=== PATIENT | female | born 1985 | race Caucasian/White ===

== ENCOUNTER 2023-10-29 01:23 | Emergency (ER) | payer OTHER ==
[~2023-10-29] VITALS: Ht 177.8 cm; Wt 78.2 kg
[~2023-10-29 01:23] MED LIST: AQUAOIN12; AZEL15GE2; CENT1TAB7 PO; TRIA1CR80
[2023-10-29] MEDS: PERCOCET 5MG/325MG TAB PO ONE (02:25)
[2023-10-29 05:30] VITALS: BP 122/67; TEMP 98.7; O2SAT 93
[2023-10-29] MEDS: OXYCODONE/APAP 5MG/325MG(HOME DOSE PACK) PO ONE (05:30)
== END 2023-10-29 05:46 | disposition home or self-care (01) ==
LOC: M ED 01:23 → EDBD 01:23 → M ED 05:46
DX: L76.22 Postprocedural hemorrhage of skin and subcutaneous tissue following other procedure (principal); I83.899 Varicose veins of unspecified lower extremity with other complications; J30.2 Other seasonal allergic rhinitis; F17.200 Nicotine dependence, unspecified, uncomplicated; Z79.899 Other long term (current) drug therapy

== ENCOUNTER → 2023-10-30 | Outpatient (CLI) | payer OTHER | LOC: M RAD 12:07 | PROVIDERS: ATTEND Nurse Practitioner Family | DX: I83.813 Varicose veins of bilateral lower extremities with pain (principal) ==

== ENCOUNTER 2023-12-17 08:32 | Day surgery (SDC) | payer OTHER ==
[~2023-12-17] VITALS: Ht 177.8 cm; Wt 80.3 kg
[2023-12-17 08:59] LABS: HEMOGLOBIN 15.2 g/dl (12.0-15.5)
[2023-12-17] MEDS ORDERED: ceFAZolin SOD 2 GM in IV 1 EA IV ONE (09:00)
[2023-12-17] MEDS ORDERED: propofoL 200 MG/20 ML VIAL As Ordered ONE (09:11)
[2023-12-17] MEDS ORDERED: LIDOCAINE 2% 100MG/5ML SDV (FOR ANES.) As Ordered ONE (09:12)
[2023-12-17] MEDS ORDERED: ONDANSETRON 4MG 2ML VIAL As Ordered ONE (09:12)
[2023-12-17] MEDS ORDERED: LR 1,000 ML IV SCH (09:40)
[2023-12-17] MEDS: NS 1,000 ML IV SCH (09:44)
[2023-12-17] MEDS ORDERED: MIDAZOLAM INJ 2MG/2ML VIAL As Ordered ONE (10:04)
[2023-12-17] MEDS: cefTRIAXone SOD 2 GM in D5W MINI-BAG PLUS 50 ML IV ONE (10:30)
[2023-12-17] MEDS ORDERED: ACETAMINOPHEN 1000MG 100ML IV BAG As Ordered ONE (10:37)
[2023-12-17] MEDS ORDERED: fentaNYL 100 MCG/2 ML INJECTION As Ordered ONE (10:40)
[2023-12-17] MEDS: LEVONORGESTREL 52MG (MIRENA) IUD As Ordered ONE (10:43)
[2023-12-17] MEDS ORDERED: KETOROLAC 60MG 2ML VIAL As Ordered ONE (10:57)
[2023-12-17] MEDS ORDERED: GABAPENTIN 300 MG CAP PO ONE (11:30)
[2023-12-17] MEDS: oxyCODONE 5MG TAB PO STA (11:37)
[2023-12-17 12:42] VITALS: BP 132/74; TEMP 96.8; O2SAT 100
[2023-12-17] MEDS: SILVER NITRATE APPLICATOR (1 = QTY 10) As Ordered ONE (14:25)
== END 2023-12-17 12:44 | disposition home or self-care (01) ==
LOC: M SDC 08:32
PROVIDERS: ATTEND Obstetrics & Gynecology
DX: N85.00 Endometrial hyperplasia, unspecified (principal); Z30.430 Encounter for insertion of intrauterine contraceptive device; N39.0 Urinary tract infection, site not specified; N93.9 Abnormal uterine and vaginal bleeding, unspecified; J30.1 Allergic rhinitis due to pollen; F17.219 Nicotine dependence, cigarettes, with unspecified nicotine-induced disorders; Z88.8 Allergy status to other drugs, medicaments and biological substances
CPT/HCPCS: 36415; 58300; 58558; 81025; 85014; 85018; 88305; J0131; J0696; J1100; J1885; J2250; J2405; J3010; J7298

== ENCOUNTER 2024-04-06 15:04 | Emergency (ER) | payer OTHER ==
[~2024-04-06] VITALS: Ht 177.8 cm; Wt 80.9 kg
[2024-04-06 15:10] VITALS: BP 126/71; TEMP 97.6; O2SAT 99
== END 2024-04-06 15:51 | disposition left against medical advice (07) ==
LOC: M ED 15:04 → EDBD 15:04 → M ED 15:51
DX: Z53.21 Procedure and treatment not carried out due to patient leaving prior to being seen by health care provider (principal)

== ENCOUNTER 2025-04-13 09:47 | Day surgery (SDC) | payer OTHER ==
[~2025-04-13] VITALS: Ht 177.8 cm; Wt 82.4 kg
[2025-04-13] MEDS ORDERED: LIDOCAINE 2% 100 MG/5 ML SDV (FOR ANES.) As Ordered ONE (09:59)
[2025-04-13 10:55] VITALS: TEMP 97.3
[2025-04-13 11:16] VITALS: BP 117/69; O2SAT 99
== END 2025-04-13 11:17 | disposition home or self-care (01) ==
LOC: M OPP 09:47
PROVIDERS: ATTEND Surgery
DX: Z12.11 Encounter for screening for malignant neoplasm of colon (principal); Z80.0 Family history of malignant neoplasm of digestive organs; Z91.048 Other nonmedicinal substance allergy status; F17.210 Nicotine dependence, cigarettes, uncomplicated